=== PATIENT | female | born 1995 | race Caucasian/White ===

== ENCOUNTER 2018-09-26 21:13 | Emergency (ER) | payer BC ==
[~2018-09-26] VITALS: Ht 165.1 cm; Wt 56.2 kg
[~2018-09-26 21:13] MED LIST: ALPR0.5T8 PO; DIVA125T2 PO; VINPAT PO
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
--- NOTE | 2018-09-26 22:05 | NUR ---
STRESS ANALYST AT BEDSIDE, PT ACCOMPANIED BY MOTHER VIA WHEELCHAIR. SCREEN WAIVER SIGNED BY MOTHER, ENDORSED, "SHE IS CURRENTLY ON HER 3RD DAY OF PERIOD" CO-SIGNED BY RN WITNESS
--- NOTE | 2018-09-26 22:46 | NUR ---
Patient discharged to home in stable conditon. Written and verbal after care instructions given. Patient verbalizes understanding of instructions. RECEIVED RADIOLOGY RECORD PT AMBULATORY WITH STABLE GAIT ACCOMPANIED BY PARENTS
[2018-09-26 22:47] VITALS: BP 113/75
== END 2018-09-26 22:46 | disposition home or self-care (01) ==
LOC: ER 21:16
DX: S16.1XXA Strain of muscle, fascia and tendon at neck level, initial encounter (principal); Z91.013 Allergy to seafood; Z79.899 Other long term (current) drug therapy; V43.52XA Car driver injured in collision with other type car in traffic accident, initial encounter; Y93.89 Activity, other specified; Y92.89 Other specified places as the place of occurrence of the external cause; Y99.8 Other external cause status
CPT/HCPCS: 72100; A4663